=== PATIENT | male | born 1990 | race Caucasian/White ===

== ENCOUNTER 2020-12-12 01:42 | Emergency (ER) | payer SELFPAY ==
[~2020-12-12] VITALS: Ht 167.6 cm; Wt 66.0 kg
[2020-12-12 01:52] VITALS: BP 120/87
== END 2020-12-12 02:50 | disposition left against medical advice (07) | DRG 125 ==
LOC: ED 01:42
DX: S01.112A Laceration without foreign body of left eyelid and periocular area, initial encounter (principal); S01.511A Laceration without foreign body of lip, initial encounter; S00.81XA Abrasion of other part of head, initial encounter; F17.290 Nicotine dependence, other tobacco product, uncomplicated; Y04.0XXA Assault by unarmed brawl or fight, initial encounter; Y92.009 Unspecified place in unspecified non-institutional (private) residence as the place of occurrence of the external cause; Z91.19 Patient's noncompliance with other medical treatment and regimen

== ENCOUNTER 2023-03-25 06:58 | Emergency (ER) | payer SELFPAY ==
[~2023-03-25] VITALS: Ht 167.6 cm; Wt 67.0 kg
[2023-03-25 07:30] VITALS: BP 112/86
[2023-03-25 07:45] VITALS: BP 116/91
[2023-03-25 08:17] VITALS: BP 124/69
[2023-03-25] MEDS ORDERED: AMOX/K CLAV875 M1 PO (08:52)
[2023-03-25 09:01] VITALS: BP 124/69
== END 2023-03-25 09:05 | disposition home or self-care (01) | DRG 605 ==
LOC: ED 06:58
PROC: 0HQLXZZ Repair Left Lower Leg Skin, External Approach (ICD-10-PCS; principal; 2023-03-25)
DX: S81.852A Open bite, left lower leg, initial encounter (principal); W54.0XXA Bitten by dog, initial encounter; Y92.821 Forest as the place of occurrence of the external cause

== ENCOUNTER 2023-06-06 05:47 | Emergency (ER) | payer SELFPAY ==
[~2023-06-06] VITALS: Ht 167.6 cm; Wt 64.0 kg
[2023-06-06] VITALS (14 sets, daily range): BP systolic 110–126; BP diastolic 65–93
[~2023-06-06 05:47] MED LIST: AMOX/K CLAV875 M1 PO
[2023-06-06 07:07] LABS: BASO% 0.6 % (0-3); EOS% 1.9 % (0-8); HEMATOCRIT 48.6 % (39.0-50.0); HEMOGLOBIN 16.6 g/dl (14.0-18.0); IMMATURE GRANULOCYTES 0.3 % (0.0-5.0); LYMPH% 24.6 % (15-41); MEAN CORPUSCULAR HGB 34.2 pG CALC (26.0-32.0); MEAN CORPUSCULAR HGB CONC 34.2 g/dL CAL (32.0-36.0); MONO% 8.1 % (2-13); NEUT# 4.67 thou/uL (1.82-7.42); NEUT% 64.5 % (42-76); RED BLOOD COUNT 4.86 mill/uL (4.70-6.10); RED CELL DISTRI WIDTH 13.3 % (11.5-15.5)
[2023-06-06 07:20] LABS: ALBUMIN 4.9 g/dL (3.2-5.0); ALKALINE PHOSPHATASE 86 u/l (38-126); ANION GAP 19 (6-22 (CALC)); BILIRUBIN, TOTAL 0.9 mg/dL (0.2-1.3); BUN 7 mg/dL (9-20); BUN/CREATININE RATIO 9 (12-20 (CALC)); CARBON DIOXIDE 23 mmol/l (22-30); CHLORIDE 103 mmol/l (95-108); CREATININE 0.9 mg/dL (0.7-1.3); GFR FOR AFR.AMER. > 60 ML/MIN (>=60 (CALC)); GFR OTHER RACES > 60 ML/MIN (>=60 (CALC)); POTASSIUM 3.9 mmol/l (3.5-5.1); SGOT/AST 115 u/l (17-59); SODIUM 141 mmol/l (137-146); TOTAL PROTEIN 8.6 g/dL (6.3-8.2)
[2023-06-06] MEDS ORDERED: DECADRON4 MG PO (08:43)
[2023-06-06] MEDS ORDERED: AMOX/K CLAV875 M1 PO (08:43)
== END 2023-06-06 09:51 | disposition home or self-care (01) | DRG 153 ==
LOC: ED 05:47
PROVIDERS: Internal Medicine
DX: J02.9 Acute pharyngitis, unspecified (principal); F17.290 Nicotine dependence, other tobacco product, uncomplicated; Z20.822 Contact with and (suspected) exposure to COVID-19
CPT/HCPCS: J1100; Q9967